=== PATIENT | female | born 1980 | race Caucasian/White ===

== ENCOUNTER 2017-01-02 11:30 | Observation (INO) | payer BC, OTHER ==
[2017-01-02 12:04] VITALS: BP 116/72
[2017-01-02] MEDS ORDERED: Betamethasone Acetate/Betamethasone Sod Phosphate 30 MG/5 ML MDV IM ONE (12:30)
[2017-01-02] MEDS ORDERED: Penicillin G Potassium 5 MILLUNITS in Sodium Chloride 0.9% 50 ML IV ONE (12:45)
[2017-01-02] MEDS ORDERED: Ampicillin 2 GM in Sodium Chloride 0.9% 100 ML IV ONE (12:45)
[2017-01-02] MEDS ORDERED: Magnesium Sulfate/Water 40 GM/1,000 ML BAG IV SCH (12:50)
[2017-01-02] MEDS: Magnesium Sulfate/Water 2 GM in Premix Bag 1 BAG IV SCH ×2 (12:50→13:07)
--- NOTE | 2017-01-02 13:04 | PCM.LDHP ---
L&D History of Present Illness - General Date of Service: 01/02/17 (ruptured membranes) Admit Problem/Dx: Patient Status Order with Admit Dx/Problem 01/02/17 12:00 Patient Status [ADT] Routine Admission Diagnosis/Problem Admission Diagnosis/Problem premature rupture of membranes Source of Information: Patient History Limitations: Reports: No Limitations - History of Present Illness Introduction:: This 30 year old who is 26 07/09 MARION 04/09/17weeks presents via ambulance with ruptured membranes. Ericka is on vacation ( from [place]with her and children. They were camping and she got up to go to the bathroom and felt like her membranes rupture. [facility] and [facility], green fluid. Has had adequate care without complications. Previous pregnancies she was GBS positive. Location, : Reports: Abdomen (not susan) Associated Symptoms: Reports: vaginal fluid - Related Data Allergies/Adverse Reactions: Allergies Allergy/AdvReac Type Severity Reaction Status Date / Time No Known Allergies Allergy Verified 01/02/17 11:45 Past Medical History [employer] History: Reports: : 5 Para: 3 LMP (Approximate): (MARION 04/09/17) H&P Review of Systems - Review of Systems: Review Of Systems: See Below General: Reports: No Symptoms HEENT: Reports: No Symptoms Pulmonary: Reports: No Symptoms Cardiovascular: Reports: No Symptoms Gastrointestinal: Reports: No Symptoms Genitourinary: Reports: No Symptoms Musculoskeletal: Reports: No Symptoms Skin: Reports: No Symptoms Psychiatric: Reports: No Symptoms Neurological: Reports: No Symptoms Hematologic/Lymphatic: Reports: No Symptoms Immunologic: Reports: No Symptoms L&D Exam - Exam Exam: See Below - Vital Signs Vital Signs: Last Vital Signs Temp 97.8 F 01/02/17 11:30 Pulse 84 01/02/17 11:30 Resp 20 01/02/17 11:30 BP 116/72 01/02/17 11:30 Pulse Ox Weight: 150 lb - OB Specific Movement: Active Heart Tones: Present Heart Tones per Min: 136 Presentation: Unable to Assess - De Santiago Score De Santiago Score Cervix Position: Midposition De Santiago Score Consistency: Medium De Santiago Score Effacement: 0-30% De Santiago Score Dilation: 1-2 cm De Santiago Score 's Station: -3 De Santiago Score Total: 3 - Exam General: Alert, Oriented HEENT: PERRLA, Conjunctiva Clear, EOMI, Hearing Intact, Posterior Pharynx Clear Neck: Supple Lungs: Clear to Auscultation, Normal Respiratory Effort Cardiovascular: Regular Rate, Regular Rhythm Abdomen: Soft, Pelvis Stable Rectal Exam: Normal Exam Genitourinary: Cervical dilitation, Cervical fluid, Enlarged uterus, Other ( membranes present in vaginal canal, fluid green) Back Exam: Normal Inspection, Full Range of Motion Extremities: Normal Inspection Skin: Warm, Dry, Intact Neurological: Cranial Nerves Intact, Reflexes Equal Bilateral Psychiatric: Alert, Normal Affect, Normal Mood - Problem List (1) premature rupture of membranes SNOMED Code(s): 099584765, [id number] ICD Code: O42.919 - PRETRM CATY ROM, UNSP TIME BETW RUPT AND ONST LABR, UNSP TRI Status: Acute Current Visit: Yes Qualifiers: PROM onset of labor timing: unspecified duration between rupture of membranes and onset of labor Qualified Code(s): O42.919 - premature rupture of membranes, unspecified as to length of time between rupture and onset of labor, unspecified trimester Problem List Initiated/Reviewed/Updated: Yes Orders Last 24hrs: Active Orders 24 hr Category Date Time Status Patient Status [ADT] Routine ADT 01/02/17 12:00 Active OB Check [OM.PC] Click to Edit Care 01/02/17 11:25 Ordered BASIC METABOLIC PANEL,BMP [CHEM] Routine Lab 01/02/17 12:47 Ordered CBC W/O DIFF,HEMOGRAM [HEME] Routine Lab 01/02/17 12:47 Ordered CHLAMYDIA,AND GC BY APTIMA Urgent Lab 01/02/17 11:49 Received CULTURE GROUP B STREP [RM] Routine Lab 01/02/17 11:49 Received UA W/MICROSCOPIC [URIN] Routine Lab 01/02/17 12:47 Ordered Ampicillin 2 gm Med 01/02/17 12:45 Active Sodium Chloride 0.9% [Normal Saline] 100 ml IV ONETIME Azithromycin [Zithromax] 250 mg Med 01/02/17 13:15 Active Sodium Chloride 0.9% [Normal Saline] 150 ml IV ONETIME Magnesium Sulfate/Water [Magnesium Sulfate 40 GM in Med 01/02/17 12:50 Active Water 1000 ML] 40 gm in 1,000 ml IV ASDIRECTED Medication Orders Magnesium Sulfate (Magnesium Sulfate 40 Gm In Water 1000 Ml) 40 gm in 1,000 mls @ 25 mls/hr IV ASDIRECTED CAROLINE Ampicillin Sodium 2 gm/ Sodium (Chloride) 100 mls @ 200 mls/hr IV ONETIME ONE Stop: 01/02/17 13:14 Azithromycin 250 mg/ Sodium (Chloride) 150 mls @ 150 mls/hr IV ONETIME ONE Stop: 01/02/17 14:14 Assessment/Plan Comment:: 01/02/17 PPROM at 26 1/7 weeks GBS, G/C obtained Ampicillin and Zithromax infusing Mag Sulfate started IV Betamethasone 12.5mg IM given Trying to obtain records from [facility] Discussed case with Dr. Raygoza at [facility], she is willing to accept transfer Arranging ambulance with OB nurse
[2017-01-02] MEDS ORDERED: Calcium Gluconate 10% 1 GM/10 ML SDV IVPUSH ONE (13:30)
[2017-01-02] MEDS ORDERED: Calcium Gluconate 10% 1 GM/10 ML SDV ONE (13:33)
== END 2017-01-02 13:45 ==
LOC: EDSEX → JP.OBCHECK 11:30 → EDBD 11:30 → JP.OB 12:22
PROVIDERS: ADMIT Nurse Practitioner Family; ATTEND Nurse Practitioner Family
DX: O42.912 Preterm premature rupture of membranes, unspecified as to length of time between rupture and onset of labor, second trimester (principal); O99.820 Streptococcus B carrier state complicating pregnancy; Z3A.26 26 weeks gestation of pregnancy
CPT/HCPCS: 36415; 80048; 81001; 85027; 87081; 87086; 87491; 87591; 96365; 96372; 96375; 96376; 99211; G0378; J0290; J0456; J3475; J7030; J7040